=== PATIENT | male | born 1970 ===

== ENCOUNTER → 2021-01-10 14:15 | Outpatient (CLI) | payer BC, SELFPAY ==
--- NOTE | ~2021-01-10 | US_ITS ---
US soft tissue groin RT, US scrotum doppler INDICATION: Right groin pain TECHNIQUE: Testicular sonogram utilizing grayscale and color Doppler. Additional Ultrasound of the ri t groin. FINDINGS: The testes are normal in size and appearance. No focal lesions are seen. The right testes measures 5.4 x 2.4 x 5 cm centimeters, and the left testis measures 4.4 x 2.1 x 3.7 cm cm. There is n ormal vascular flow to both testes. No discrete mass identified in the area of palpable concern in th e area of the right testicle. There are small left epididymal cysts, largest measuring 6 mm. There is no varicocele or hydrocele. No evidence for hernia in the right groin. IMPRESSION: 1. Unremarkable testicular and right groin ultrasound. No evidence for testicular mass or inguinal h ernia. Reviewed, dictated and finalized at location B. IMPRESSION: 1. Unremarkable testicular and right groin ultrasound. No evidence for testicu lar mass or inguinal hernia.
== END ==
PROVIDERS: PCP Physician Assistant; Visit Provider Physician Assistant
DX: R10.31 Right lower quadrant pain (principal); N50.89 Other specified disorders of the male genital organs
CPT/HCPCS: 76870; 76882; 93976